=== PATIENT | male | born 1980 | race Caucasian/White ===

== ENCOUNTER → 2020-08-20 08:00 | Outpatient (CLI) | payer OTHER, SELFPAY ==
--- NOTE | 2020-08-20 08:06 | RAD_ITS ---
STUDY: X-RAY - ESOPHAGUS (BARIUM SWALLOW) WITH FLUOROSCOPY REASON FOR EXAM: Male, 39 years old. DYSPHAGIA. SWALLOWING ISSUES W/ FOOD X 10 YRS TECHNIQUE: 12 view(s) of the esophagus were obtained following swallowing of barium. FLUOROSCOPY TIME (if supplied): (0:30) minutes/seconds COMPARISON: None. FINDINGS: There is no demonstrated esophageal foreign body. There is no demonstrated stricture or mucosal abnormality. Normal gastroesophageal junction, without a demonstrated hiatal hernia. The patient ingested a 12 mm tablet of barium. The tablet is trapped at the gastroesophageal junction. Normal visualized aortic arch and descending thoracic aorta. Normal visualized pulmonary parenchyma. Normal visualized osseous structures of the thorax. RAD/Esophagus Dual Contrast IMPRESSION: The patient ingested a 12 mm tablet of barium. The tablet is trapped at the gastroesophageal junction. Electronically Signed: Jerry Barron, at 10:32 EDT , Service support ,
== END ==
PROVIDERS: Referring Provider Nurse Practitioner Adult Health; Visit Provider Nurse Practitioner Adult Health
DX: R13.10 Dysphagia, unspecified (principal)
CPT/HCPCS: 74221

== ENCOUNTER 2020-10-14 11:30 | Outpatient (RCR) | payer OTHER, SELFPAY ==
--- NOTE | 2020-10-06 16:16 | HP.PTEVAL ---
Patient's Visit Information RABIA NANCE is a 39 year old M referred to Physical Therapy by PASTORA ISRAEL with a diagnosis of IMPINGEMENT SYNDROME OF RIGHT SHOULDER S/P ARTHROSCOPIC RTIGHT SHOULDER. Date of Evaluation: 10/06/20 Physical Therapist: Toni Gamez, PT, Cert MDT, OCS - Visit Plan Frequency: 2x /Week Duration: 4 Weeks Plan: PT INTERVENTIONS AAROM/AROM /PROM REBECCA,STRENGTHENING RTC /SCAPULAR AND POSTURAL EX'S,AND CP - Subjective This 39 y/o male presents to physcal therapy with right shoulder arthroscopic subacromial decompression on 09/22/20 at [facility]. Patient injuried shoulder working with horse . Seen Dr at [facility] had MRI showed mild tear . Thus had spur and DR said didnt needed to repair RTC .Patient had sling about 4 days. Seen 09/22 okay to start PT and use arm as tolerated. Patient denies parathesia/tingling. Patient pain affects sleeping. Patient has limitations with ADLS'a nd housework tasks above 90 degrees and job demands. Patient surgery affects QOL aND job demands .Patient plans to see for cervical spine HNP in October. VOCATION: [employer]. SOCAIL: - Objective POSTURE: mild foward posture. NEURO: intact except c/o cervical disc with parathesia left arm. PALAPTION: tender AC mild. AROM: standing shoulder flexion 125 degrees ,abduction 120 ,ER 80 degrees,IR L2. PROM: shoulder flexion 150 degrees,abd 165 degrees,ER 80 degrees. MMT: RTC 4/5 except supraspinatous 4-/5,deltoid 4-/5 anterior - Goals Goal 1:: Independant with HEP Goal Time Frame: 4-6 Weeks Goal 2:: Decrease symptoms with job demands and ADLS' by 75% or > Goal Time Frame: 4-6 Weeks Goal 3:: Patient increase AROM shoulder flexion /abd 150 degrees or > to improve function and Job demnads. Goal Time Frame: 2-4 Weeks Goal 4:: Patient increase strength of RTC and deltoid 4/5 to impriove function and ADLS' Goal Time Frame: 4-6 Weeks Goal 5:: Patient to improve quick dash by 5 points or > to improve QOL. - Rehabilitation Potential Physical Therapy Diagnosis: This pateint underwent s/p arthroscopic right shoulder with decrease ROM ,strength,with some soreness with OH activity impairs ADLS' thus will benifit from skilled PT Rehabilitation Potential: Good - Anticipated Interventions Patient/Client Instruction: Educate patient on: Condition, Plan of Care For the Purpose of:: To decrease pain, To increase ROM, To improve muscle performance and motor function, To improve ability to perform ADL's, To increase tolerance to activity/condition/position, To improve ability of physical actions for home/community/work/leisure, To improve health of tissue, To decrease soft tissue restriction, To increase flexibility/ROM, To reduce risk of recurrence Therapeutic Exercise to Include: Strength training, Postural training, Flexibilty training, Passive ROM, Active ROM, Scapular Strength/Stabilization Comment: RTC For the Purpose of:: To decrease pain, To increase ROM, To improve muscle performance and motor function, To improve ability to perform ADL's, To increase tolerance to activity/condition/position, To improve ability of physical actions for home/community/work/leisure, To improve health of tissue, To decrease soft tissue restriction, To increase flexibility/ROM, To reduce risk of recurrence, To improve ability to perform tasks related to life management TENS: Yes IF ES: Yes Cryotherapy (ice pack, ice massage): Yes For the Purpose of:: To decrease pain, To increase ROM, To improve nutrient delivery to tissue, To increase oxygenation perfusion, To improve health of tissue, To decrease soft tissue restriction Thank you for the opportunity to evaluate your patient. For Medicare and Medicare HMO plans, please review the plan of care and approve it. It will need to be FAXED BACK to us at [phone] for Medicare purposes. For Medicare only, by signing this I certify the plan of care. Please let me know if there are questions or concerns regarding this plan of care. Physician Signature: Date:
== END 2020-10-14 19:00 | disposition home or self-care (01) ==
LOC: PT 11:30
DX: Z47.89 Encounter for other orthopedic aftercare (principal); M75.41 Impingement syndrome of right shoulder; Z98.890 Other specified postprocedural states
CPT/HCPCS: 97110; 97161

== ENCOUNTER → 2021-01-08 11:08 | Outpatient (CLI) | payer OTHER, SELFPAY ==
[2017-02-18 16:36] VITALS: BMI 26.1
== END ==
PROVIDERS: Referring Provider Surgery; Visit Provider Surgery
DX: Z30.2 Encounter for sterilization (principal)
CPT/HCPCS: 89321

== ENCOUNTER → 2021-02-12 | Outpatient (CLI) | payer OTHER, SELFPAY ==
[2017-02-18 16:36] VITALS: BMI 26.1
[2021-02-14 11:50] LABS: Semen Analysis Post Vas ABSENT
== END | disposition home or self-care (01) ==
LOC: LABSPEC 08:00
PROVIDERS: Referring Provider Surgery; Visit Provider Surgery
DX: Z30.2 Encounter for sterilization (principal)
CPT/HCPCS: 89321

== ENCOUNTER 2021-12-01 18:00 | Outpatient (RCR) | payer OTHER, SELFPAY ==
--- NOTE | 2021-08-25 18:28 | HP.PTEVAL_ITS ---
Patient's Visit Information RABIA NANCE is a 40 year old M referred to Physical Therapy by Dr. William Rosario MD with a diagnosis of R rot cuff repair. Date of Evaluation: 08/25/21 Physical Therapist: Checo Metz, PT, ATC - Visit Plan Frequency: 2-3x /Week Duration: 4-6 Weeks Plan: Phase one ex's consisting of PROM and mobilizations. Proceed to phase II per surgeon. - Subjective DOS: 08/11/21. Pt reports he tore his L rotator cuff skiing 3 years ago. Pt reports he waited to see if it would heal itself, but never did. No PMHx of L rotator cuff pathology. Pt reports he is feeling better since surgery, but notes he has significant sleep difficulty secondary to pain. 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 Pt notes no tingling or numbness in L UE at this time. Pt notes he is R hand dominant. 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 Pt reports he has restrictions at this time to now use his L UE at all, and to lift more than 2 lbs. with his L hand. Pt reports he has not been performing a HEP at this time secondary to never being givel one at this time. 0/10 pain at rest, 6/10 pain at worst (when he is trying to sleep - Pain L shoulder Pain Intensity (Out of 10): 0 Pain Intensity Range: 6 - Objective Neuro: B UE sensation is WNL to light touch. B bicepital reflex= 2/3. Observation: Incisions appear to be healing well with no signs of infection. ROM: R shoulder AROM: flex= 175, abd= 175, ER= 75, IR WNL; L shoulder PROM: flex and abd= 50 degrees, ER= 0. MMT: R shoulder 5/5 throughout. L shoulder not tested per protocal - Balance/Special Test Scores Quick DASH Score: 59.0900 - Goals Goal 1:: Decrease L shoulder pain x 50% to aid with sleep Goal Time Frame: 6-8 Weeks Goal 2:: Increase L shoulder flex and abd ROM x 50 degrees to aid with overhead activity Goal Time Frame: 6-8 Weeks Goal 3:: Increase L shoulder strength x 2 grades to aid with RTW without limitations Goal Time Frame: 6-8 Weeks Goal 4:: I with HEP Goal Time Frame: 6-8 Weeks - Rehabilitation Potential Physical Therapy Diagnosis: R shoulder pain, weakness, and limited ROM secondary to R rot cuff repair Rehabilitation Potential: Good - Anticipated Interventions Patient/Client Instruction: Educate patient on: Condition, Plan of Care For the Purpose of:: To improve self management Therapeutic Exercise to Include: Strength training, Endurance training, Postural training, Flexibilty training, Passive ROM, Active ROM For the Purpose of:: To decrease pain, To increase ROM, To improve muscle performance and motor function Cryotherapy (ice pack, ice massage): Yes For the Purpose of:: To decrease pain Thank you for the opportunity to evaluate your patient. For Medicare and Medicare HMO plans, please review the plan of care and approve it. It will need to be FAXED BACK to us at [phone] for Medicare purposes. For Medicare only, by signing this I certify the plan of care. Please let me know if there are questions or concerns regarding this plan of care. Physician Signature: Date:
--- NOTE | 2021-12-01 18:44 | HP.PTREVAL_ITS ---
Dr. William Rosario MD, It has been my pleasure to treat RABIA NANCE over the last 19 visits for L rot cuff repair 08/11/21. Please see the progress note below for an update on the physical therapy plan of care! Subjective: I am not pleased with my progress at this time Objective/Function: L shoulder pain ranges from 0-3/10. L shoulder MMT: flex= 135 degrees, abd= 130 degrees. L shoulder MMT: 4/5 throughout. Pt is progressing well toward Rx goals. Still lacks functional strength and ROM Plan Plan: Follow up or DC in [facility] Balance/Gait/Functional tests - Balance/Special Test Scores Quick DASH Score: 22.7250 Goals Goal 1:: Decrease L shoulder pain x 50% to aid with sleep Goal Time Frame: 6-8 Weeks Goal Progress: Goal Met Goal 2:: Increase L shoulder flex and abd ROM x 50 degrees to aid with overhead activity Goal Time Frame: 6-8 Weeks Goal Progress: Goal Met Goal 3:: Increase L shoulder strength x 2 grades to aid with RTW without limitations Goal Time Frame: 6-8 Weeks Goal Progress: Progressing Goal 4:: I with HEP Goal Time Frame: 6-8 Weeks Goal Progress: Goal Met Anticipated Interventions Patient/Client Instruction: Educate patient on: Condition, Plan of Care For the Purpose of:: To improve self management Therapeutic Exercise to Include: Strength training, Endurance training, Postural training, Flexibilty training, Passive ROM, Active ROM For the Purpose of:: To decrease pain, To increase ROM, To improve muscle performance and motor function Cryotherapy (ice pack, ice massage): Yes For the Purpose of:: To decrease pain Please do not hesitate to contact me at [phone] by phone or if you have questions or concerns regarding this new plan of care! Sincerely, Checo Metz, PT, ATC
== END 2021-12-01 19:00 | disposition home or self-care (01) ==
LOC: PT 18:00
PROVIDERS: Referring Provider Orthopaedic Surgery; Visit Provider Orthopaedic Surgery
DX: M75.122 Complete rotator cuff tear or rupture of left shoulder, not specified as traumatic (principal)
CPT/HCPCS: 97110; 97140; 97161; 97164